=== PATIENT | male | born 1995 | race Hispanic/Latino ===

== ENCOUNTER 2019-02-17 17:32 | Emergency (ER) | payer OTHER ==
[~2019-02-17] VITALS: Ht 177.8 cm; Wt 83.9 kg
== END 2019-02-17 18:22 | disposition home or self-care (01) ==
LOC: ED 17:32
DX: S02.5XXA Fracture of tooth (traumatic), initial encounter for closed fracture (principal); Z91.048 Other nonmedicinal substance allergy status; W51.XXXA Accidental striking against or bumped into by another person, initial encounter
CPT/HCPCS: 99282